=== PATIENT | male | born 1970 | race Hispanic/Latino ===

== ENCOUNTER 2017-10-27 06:51 | Emergency (ER) | payer SELFPAY | END 2017-10-27 07:10 | disposition left against medical advice (07) | LOC: EDH 06:51 | DX: Z53.21 Procedure and treatment not carried out due to patient leaving prior to being seen by health care provider (principal); Z72.0 Tobacco use ==

== ENCOUNTER 2023-01-11 23:01 | Emergency (ER) | payer BC ==
[~2023-01-11] VITALS: Ht 175.3 cm; Wt 81.6 kg
[2023-01-12 00:22] VITALS: BP 128/72
== END 2023-01-12 00:27 | disposition home or self-care (01) ==
LOC: EDH 23:01
DX: Z02.89 Encounter for other administrative examinations (principal); E11.9 Type 2 diabetes mellitus without complications; E78.00 Pure hypercholesterolemia, unspecified; E66.9 Obesity, unspecified; F20.9 Schizophrenia, unspecified; I10 Essential (primary) hypertension; Z68.26 Body mass index [BMI] 26.0-26.9, adult
CPT/HCPCS: 99281

== ENCOUNTER 2024-01-26 08:59 | Emergency (ER) | payer BC ==
[~2024-01-26] VITALS: Ht 175.3 cm; Wt 75.7 kg
[2024-01-26] MEDS ORDERED: AMOX1TAB16 PO (09:18)
[2024-01-26] MEDS: CEFTRIAXONE 1G VIAL IM ONE (09:27)
[2024-01-26] MEDS: TETANUS/DIPHTHERIA TOXOID [ADULT] 0.5 ML VIAL IM ONE (09:29)
[2024-01-26 09:38] VITALS: BP 147/85; PULSE 76; RESP 14
== END 2024-01-26 09:56 | disposition home or self-care (01) ==
LOC: EDH 08:59
DX: S81.812A Laceration without foreign body, left lower leg, initial encounter (principal); E11.9 Type 2 diabetes mellitus without complications; E78.00 Pure hypercholesterolemia, unspecified; F20.9 Schizophrenia, unspecified; Z79.899 Other long term (current) drug therapy; W54.0XXA Bitten by dog, initial encounter; Y93.89 Activity, other specified; Y92.89 Other specified places as the place of occurrence of the external cause; Y99.8 Other external cause status
CPT/HCPCS: 99284; 90714; 96372; 90471; J0696